=== PATIENT | female | born 1935 | race Hispanic/Latino ===

== ENCOUNTER → 2017-10-12 | Outpatient (CLI) | payer OTHER ==
[~2017-10-12] MED LIST: DIATRIZOATE MEGL/DIATRIZOA SOD 30 ML BTL PO ONE; IOPAMIDOL 370 MG/ML 200 ML INFUS..BTL INJ ONE; SODIUM CHLORIDE 0.9% 50ML 50 ML ONE
[2017-10-12 08:52] LABS: BLOOD UREA NITROGEN 15 mg/dL (7-26); BUN/CREATININE RATIO 18 (6-25); CREATININE, SERUM 0.83 mg/dL (0.57-1.11); EST GLOMERULAR FILTRATION RATE > 60 ML/MIN (60-)
--- NOTE | 2017-10-12 09:48 | Diagnostic Imaging Report ---
PROCEDURE:CT ABDOMEN AND PELVIS WITH CONTRAST COMPARISON:None. INDICATIONS:Abdominal pain TECHNIQUE: Routine protocol Volumetric CT abdomen and pelvis after administration of 100 mL Isovue-370 intravenous contrast and positive enteric contrast. Multiplanar reformatted images. DLP: 374.68 FINDINGS: Clear lung bases. No pleural effusions. Mild cardiomegaly without pericardial effusion. Left anterior descending coronary calcification. Liver: Diffuse decreased enhancement relative to the spleen. Otherwise, normal. Gallbladder: Cholecystectomy. No bile duct dilation. Pancreas: Atrophic; otherwise, normal Spleen: Normal Adrenal glands: Normal Kidneys: 2.3 cm left superior pole cyst; otherwise, normal bilaterally. Ureters and urinary bladder: Normal Uterus and adnexa: Hysterectomy Bowel: Normal caliber. Inconspicuous appendix. 0.9 cm enhancing polypoid nodule at the dependent aspect of the terminal ileum (image 56, series 2). Moderate stool volume. Peritoneum: Normal Vasculature: Normal caliber. Mild atherosclerosis of the infrarenal aorta and iliac arteries. Lymph nodes: Normal Skeleton: Intact. Multilevel degenerative disc disease. Soft tissues: Fat-containing inguinal hernias. Otherwise, normal. CONCLUSION: 1. Hepatic steatosis. 2. Nonobstructive 9 mm polypoid nodule at the terminal ileum. Recommend correlation with findings from screening colonoscopies. If not previously noted, consider followup with CT enterography in 6 to 12 months. 3. Otherwise, no conspicuous etiology for abdominal pain. Dictated by: Isauro Haas M.D. on 10/12/2017 at 9:49 Electronically approved by: Isauro Haas M.D. on 10/12/2017 at 9:49
== END ==
LOC: CT 07:42
PROVIDERS: ATTEND Family Medicine
DX: R10.9 Unspecified abdominal pain (principal)
CPT/HCPCS: 36415; 74177; 82565; 84520; Q9967

== ENCOUNTER → 2017-12-17 | Day surgery (SDC) | payer OTHER ==
[2017-12-14 11:22] LABS: BASOPHILS # (AUTO) 0.1 (0.0-0.1); BASOPHILS % 1.4 % (0.0-1.0); EOSINOPHILS # (AUTO) 0.2 (0.0-0.4); EOSINOPHILS % 3.8 % (0.0-6.0); HEMATOCRIT 37.8 % (34.2-44.1); HEMOGLOBIN 12.9 g/dL (12.0-16.0); LYMPHOCYTES # (AUTO) 1.7 (1.0-3.2); LYMPHOCYTES % 31.3 % (18.0-39.1); MEAN CORPUSCULAR HEMOGLOBIN 29.4 pg (28-32); MEAN CORPUSCULAR HGB CONC 34.1 g/dL (31-35); MEAN CORPUSCULAR VOLUME 86.1 fL (81-99); MONOCYTES # (AUTO) 0.6 (0.2-0.8); MONOCYTES % 10.3 % (4.4-11.3); NEUTROPHILS # (AUTO) 2.9 (2.1-6.9); NEUTROPHILS % 52.8 % (38.7-80.0); PLATELET COUNT 255 x10e3/uL (140-360); RED BLOOD COUNT 4.39 x10e6/uL (3.6-5.1); RED CELL DISTRIBUTION WIDTH 13.3 % (11.7-14.4)
[~2017-12-17] MED LIST changes: -DIATRIZOATE MEGL/DIATRIZOA SOD 30 ML BTL PO ONE; +GLIPIZIDE5 MG PO; +INSULIN REGULAR, HUMAN 100 UNIT/1 ML 3ML VIAL ONE; -IOPAMIDOL 370 MG/ML 200 ML INFUS..BTL INJ ONE; +IRON PO; +JANUVIA100 MG PO; +LIDOCAINE HCL 2% LOCAL INJ 5 ML SDV VIAL INJ ONE; +LOSARTAN-HCTZ1 EAC1 PO; +METFORMIN HCL500 M2 PO; +METOPROLOL TART50 MG PO; +PROPOFOL IV EMULSION 10 MG/ML 50 ML VIAL ONE; -SODIUM CHLORIDE 0.9% 50ML 50 ML ONE; +VESICARE5 MG PO
--- OUTSIDE RECORDS SUMMARY | 2017-12-17 06:32 | XMS REPORT ---
Author Author [facility] Address Unknown Phone Unavailable Care Team Providers Care Document Preparation Specialist Name Role Phone HEMA HERNADEZ Unavailable Unavailable Problems This patient has no known problems. Allergies, Adverse Reactions, Alerts This patient has no known allergies or adverse reactions. Medications This patient has no known medications. Results Test Description Test Time Test Comments Text Results Atomic Results Result Comments CT ABDOMEN/PELVIS W [place] [address] Patient Name: TINA ANDREWS MR #: [id number] : 1935 Age/Sex: 82/F Req #: [id number] Adm Physician: Ordered by: SATYA HALL, HEMA Sevilla MD Report #: [id number] Location: CT Room/Bed: ___ Procedure: [id number] CT/CT ABDOMEN/PELVIS W Exam Date: 10/12/17 Exam Time: 15 REPORT STATUS: Signed PROCEDURE: CT ABDOMEN AND PELVIS WITH CONTRAST COMPARISON: None. INDICATIONS: Abdominal pain TECHNIQUE: Routine protocol Volumetric CT abdomen and pelvis after administration of 100 mL Isovue-370 intravenous contrast and positive enteric contrast. Multiplanar reformatted images. DLP: 374.68 FINDINGS: Clear lung bases. No pleural effusions. Mild cardiomegaly without pericardial effusion. Left anterior descending coronary calcification. Liver: Diffuse decreased enhancement relative to the spleen. Otherwise, normal. Gallbladder: Cholecystectomy. No bile duct dilation. Pancreas: Atrophic; otherwise, normal Spleen: Normal Adrenal glands: Normal Kidneys: 2.3 cm left superior pole cyst; otherwise, normal bilaterally. Ureters and urinary bladder: Normal Uterus and adnexa: Hysterectomy Bowel: Normal caliber. Inconspicuous appendix. 0.9 cm enhancing polypoid nodule at the dependent aspect of the terminal ileum (image 56, series 2). Moderate stool volume. Peritoneum: Normal Vasculature: Normal caliber. Mild atherosclerosis of the infrarenal aorta and iliac arteries. Lymph nodes: Normal Skeleton: Intact. Multilevel degenerative disc disease. Soft tissues: Fat-containing inguinal hernias. Otherwise, normal. CONCLUSION: 1. Hepatic steatosis. 2. Nonobstructive 9 mm polypoid nodule at the terminal ileum. Recommend correlation with findings from screening colonoscopies. If not previously noted, consider followup with CT enterography in 6 to 12 months. 3. Otherwise, no conspicuous etiology for abdominal pain. Dictated by: Emeka Haas M.D. on 10/12/2017 at 9:49 Electronically approved by: Emkea Haas M.D. on 2017 at 9:49 Dictated By: EMEKA HAAS MD Transcribed By: KILEY on 948 COPY TO: HEMA HERNADEZ
== END | disposition home or self-care (01) ==
LOC: OR 06:30
PROVIDERS: ATTEND Internal Medicine Gastroenterology
DX: Z09 Encounter for follow-up examination after completed treatment for conditions other than malignant neoplasm (principal); D12.2 Benign neoplasm of ascending colon; K57.30 Diverticulosis of large intestine without perforation or abscess without bleeding; K64.8 Other hemorrhoids; D64.9 Anemia, unspecified; I10 Essential (primary) hypertension; E11.9 Type 2 diabetes mellitus without complications; E66.3 Overweight; Z01.810 Encounter for preprocedural cardiovascular examination; Z79.84 Long term (current) use of oral hypoglycemic drugs; Z68.27 Body mass index [BMI] 27.0-27.9, adult
CPT/HCPCS: 36415 ×2; 45385; 82948; 85025; 93005; J2001

== ENCOUNTER → 2020-11-13 | Outpatient (CLI) | payer MEDICARE, OTHER ==
[~2020-11-13] MED LIST changes: -INSULIN REGULAR, HUMAN 100 UNIT/1 ML 3ML VIAL ONE; +LEVAQUIN500 MG PO; -LIDOCAINE HCL 2% LOCAL INJ 5 ML SDV VIAL INJ ONE; -PROPOFOL IV EMULSION 10 MG/ML 50 ML VIAL ONE
== END ==
LOC: RAD 14:15
PROVIDERS: ATTEND Family Medicine
DX: R07.89 Other chest pain (principal)
CPT/HCPCS: 71101

== ENCOUNTER → 2020-11-28 | Outpatient (CLI) | payer MEDICARE, OTHER | LOC: DX 08:27 | PROVIDERS: ATTEND Family Medicine | DX: Z13.820 Encounter for screening for osteoporosis (principal); Z78.0 Asymptomatic menopausal state | CPT/HCPCS: 77080 ==

== ENCOUNTER 2021-04-03 09:10 | Emergency (ER) | payer MEDICARE, OTHER ==
[~2021-04-03] VITALS: Ht 152.4 cm; Wt 54.4 kg
[2021-04-03 10:06] LABS: BASOPHILS # (AUTO) 0.1 (0.0-0.1); BASOPHILS % 1.9 % (0.0-1.0); EOSINOPHILS # (AUTO) 0.1 (0.0-0.4); EOSINOPHILS % 2.1 % (0.0-6.0); HEMATOCRIT 27.6 % (34.2-44.1); HEMOGLOBIN 7.8 g/dL (12.0-16.0); LYMPHOCYTES # (AUTO) 0.9 (1.0-3.2); LYMPHOCYTES % 18.4 % (18.0-39.1); MEAN CORPUSCULAR HGB CONC 28.3 g/dL (31-35); MEAN CORPUSCULAR VOLUME 67.2 fL (81-99); MONOCYTES # (AUTO) 0.4 (0.2-0.8); MONOCYTES % 8.1 % (4.4-11.3); NEUTROPHILS # (AUTO) 3.3 (2.1-6.9); NEUTROPHILS % 68.7 % (38.7-80.0); PLATELET COUNT 447 x10e3/uL (140-360); RED BLOOD COUNT 4.11 x10e6/uL (3.6-5.1); RED CELL DISTRIBUTION WIDTH 18.9 % (11.7-14.4)
[2021-04-03 10:25] LABS: INR 0.92; PARTIAL THROMBOPLASTIN TIME 26.4 seconds (23.8-35.5); PROTHROMBIN TIME 12.6 seconds (11.9-14.5)
[2021-04-03 10:30] LABS: ALBUMIN 4.2 g/dL (3.5-5.0); ALBUMIN/GLOBULIN RATIO 1.1 (0.8-2.0); ANION GAP 14.1 mmol/L (8-16); CALCIUM 9.2 mg/dL (8.4-10.2); CREATININE, SERUM 0.8 mg/dL (0.57-1.11); POTASSIUM 4.1 mmol/L (3.5-5.1)
[2021-04-03] MEDS ORDERED: SODIUM CHLORIDE 0.9% 250ML 250 ML IV ONE (10:45)
[2021-04-03] MEDS ORDERED: SODIUM CHLORIDE 0.9% 250ML 250 ML ONE (15:16)
== END 2021-04-03 20:04 | disposition home or self-care (01) ==
LOC: ER 09:43
DX: D64.9 Anemia, unspecified (principal); E11.65 Type 2 diabetes mellitus with hyperglycemia; I10 Essential (primary) hypertension; N32.81 Overactive bladder; Z96.653 Presence of artificial knee joint, bilateral
CPT/HCPCS: 36415; 80053; 85025; 85610; 85730; 86850; 86900; 86920; 99283; J7050; P9016

== ENCOUNTER → 2021-08-15 | Day surgery (SDC) | payer MEDICARE, OTHER ==
[2021-08-13 08:29] LABS: BASOPHILS # (AUTO) 0.1 (0.0-0.1); EOSINOPHILS # (AUTO) 0.3 (0.0-0.4); EOSINOPHILS % 4.8 % (0.0-6.0); HEMATOCRIT 35.2 % (34.2-44.1); HEMOGLOBIN 10.9 g/dL (12.0-16.0); LYMPHOCYTES # (AUTO) 1.5 (1.0-3.2); LYMPHOCYTES % 27.3 % (18.0-39.1); MEAN CORPUSCULAR HEMOGLOBIN 25.3 pg (28-32); MEAN CORPUSCULAR VOLUME 81.9 fL (81-99); MONOCYTES # (AUTO) 0.6 (0.2-0.8); MONOCYTES % 10.8 % (4.4-11.3); NEUTROPHILS % 54.9 % (38.7-80.0); PLATELET COUNT 312 x10e3/uL (140-360); RED CELL DISTRIBUTION WIDTH 16.8 % (11.7-14.4)
[~2021-08-15] MED LIST changes: +BENICAR40 MG PO; +CRESTOR10 MG PO; +FENTANYL CITRATE/PF 100MCG/2 ML INJ ONE; +FERROUS SULFAT325 MG PO; +GLIPIZIDE ER5 MG PO; +HYDRALAZINE HC100 MG PO; +HYDROCHLOROTHIA25 MG PO; +LANTUS 3ML100 UNITS/ INJ; +LEVOTHYROXINE50 MCG PO; +LIDOCAINE HCL 2% LOCAL INJ 5 ML SDV VIAL INJ ONE; +OXYBUTYNIN CHLOR5 M1 PO; +PROPOFOL IV EMULSION 10 MG/ML 20 ML VIAL ONE; +VITAMIN D2 PO
[2021-08-15 09:17] VITALS: BP 116/56
== END | disposition home or self-care (01) ==
LOC: OR 07:03
PROVIDERS: ATTEND Internal Medicine Gastroenterology
DX: D50.0 Iron deficiency anemia secondary to blood loss (chronic) (principal); K63.5 Polyp of colon; K29.40 Chronic atrophic gastritis without bleeding; K31.A0 Gastric intestinal metaplasia, unspecified; K55.20 Angiodysplasia of colon without hemorrhage; K44.9 Diaphragmatic hernia without obstruction or gangrene; K64.8 Other hemorrhoids; E66.3 Overweight; Z71.3 Dietary counseling and surveillance; E11.9 Type 2 diabetes mellitus without complications; I49.1 Atrial premature depolarization; I10 Essential (primary) hypertension; E78.5 Hyperlipidemia, unspecified; E03.9 Hypothyroidism, unspecified; M19.90 Unspecified osteoarthritis, unspecified site; Z01.810 Encounter for preprocedural cardiovascular examination; Z01.812 Encounter for preprocedural laboratory examination; Z20.822 Contact with and (suspected) exposure to COVID-19; Z79.4 Long term (current) use of insulin; Z79.899 Other long term (current) drug therapy; Z68.25 Body mass index [BMI] 25.0-25.9, adult
CPT/HCPCS: 36415 ×2; 43239; 45385; 82948; 85025; 93005; J2001; J2704; J3010; U0002; 45378

== ENCOUNTER 2025-01-04 17:35 | Inpatient (IN) | payer MEDICARE, OTHER ==
[~2025-01-04] VITALS: Ht 152.4 cm; Wt 54.4 kg
[~2025-01-04 17:35] MED LIST changes: -FENTANYL CITRATE/PF 100MCG/2 ML INJ ONE; -LIDOCAINE HCL 2% LOCAL INJ 5 ML SDV VIAL INJ ONE; +MUCINEX DM ER1 EACH PO; -PROPOFOL IV EMULSION 10 MG/ML 20 ML VIAL ONE
[2025-01-04 17:55] VITALS: TEMP 98.7
[2025-01-04 18:16] LABS: BASOPHILS # (AUTO) 0.1 (0.0-0.1); BASOPHILS % 1.2 % (0.0-1.0); EOSINOPHILS # (AUTO) 0.1 (0.0-0.4); EOSINOPHILS % 2.1 % (0.0-6.0); HEMATOCRIT 34.7 % (34.2-44.1); HEMOGLOBIN 11.1 g/dL (12.0-16.0); LYMPHOCYTES # (AUTO) 1.4 (1.0-3.2); LYMPHOCYTES % 25.5 % (18.0-39.1); MEAN CORPUSCULAR HEMOGLOBIN 27.9 pg (28-32); MEAN CORPUSCULAR VOLUME 87.2 fL (81-99); MONOCYTES # (AUTO) 0.6 (0.2-0.8); MONOCYTES % 10.1 % (4.4-11.3); NEUTROPHILS # (AUTO) 3.4 (2.1-6.9); NEUTROPHILS % 60.6 % (38.7-80.0); PLATELET COUNT 230 x10e3/uL (140-360); RED BLOOD COUNT 3.98 x10e6/uL (3.6-5.1); WHITE BLOOD COUNT 5.65 x10e3/uL (4.8-10.8)
[2025-01-04] MEDS: CALCIUM GLUC 1 G/50 ML NACL 50 ML IV ONE ×2 (18:31→23:43)
[2025-01-04 18:37] LABS: ALBUMIN 3.9 g/dL (3.5-5.0); ALBUMIN/GLOBULIN RATIO 1.3 (0.8-2.0); ANION GAP 16.3 mmol/L (8-16); BILIRUBIN,TOTAL 0.8 mg/dL (0.2-1.2); CALCIUM 9.2 mg/dL (8.4-10.2); CREATININE, SERUM 0.83 mg/dL (0.57-1.11); POTASSIUM 4.3 mmol/L (3.5-5.1); TOTAL PROTEIN 6.9 g/dL (6.5-8.1)
[2025-01-04 18:42] LABS: TROPONIN I 0.006 ng/mL (0-0.300)
[2025-01-04] MEDS: ASPIRIN 81 MG CHEW TAB PO ONE (19:13)
[2025-01-04] MEDS: GLUCAGON FOR INJ 1 MG VIAL IV ONE ×2 (19:13→23:43)
[2025-01-04] MEDS ORDERED: ONDANSETRON HCL INJ 2MG/ML 2ML 2 MG/ML VIAL IV PRN (19:45)
[2025-01-04 22:03] VITALS: PULSE 49; RESP 18
[2025-01-04 22:38] VITALS: PULSE 46; RESP 20; O2SAT 98
[2025-01-04 22:55] VITALS: BP 177/54; PULSE 42; RESP 20; TEMP 98.4; O2SAT 96
[2025-01-04 23:00] VITALS: BP 177/55; PULSE 42; RESP 20; O2SAT 97
[2025-01-04 23:36] VITALS: BP 162/55; PULSE 40; RESP 18; O2SAT 96
[2025-01-04] MEDS ORDERED: LEVOTHYROXINE75 MCG PO (23:39)
[2025-01-04] MEDS ORDERED: METOPROLOL SUCC25 MG PO (23:39)
[2025-01-04] MEDS ORDERED: CLOPIDOGREL75 MG PO (23:39)
[2025-01-04] MEDS ORDERED: MAG-OXIDE400 MG PO (23:39)
[2025-01-04] MEDS ORDERED: METFORMIN HCL500 M1 PO (23:39)
[2025-01-04] MEDS ORDERED: ASPIRIN81 MG PO (23:39)
[2025-01-04] MEDS ORDERED: GLIPIZIDE ER10 MG PO (23:39)
[2025-01-04] MEDS ORDERED: JARDIANCE25 MG PO (23:39)
[2025-01-04] MEDS ORDERED: PIOGLITAZONE HC45 MG PO (23:39)
[2025-01-04] MEDS ORDERED: NITROGLYCERIN0.4 MG SL (23:39)
[2025-01-04] MEDS ORDERED: SPIRONOLACTONE25 MG PO (23:39)
[2025-01-04] MEDS ORDERED: TRAZODONE HCL50 MG PO (23:39)
[2025-01-04] MEDS ORDERED: SERTRALINE HCL25 MG PO (23:39)
[2025-01-05] VITALS (25 sets, daily range): BP systolic 164–195; BP diastolic 52–69; PULSE 38–56; RESP 14–21; TEMP 97.6–98.1; O2SAT 95–99
[2025-01-05 06:49] LABS: BASOPHILS # (AUTO) 0.1 (0.0-0.1); BASOPHILS % 1.1 % (0.0-1.0); EOSINOPHILS # (AUTO) 0.2 (0.0-0.4); EOSINOPHILS % 3.7 % (0.0-6.0); HEMATOCRIT 36.6 % (34.2-44.1); HEMOGLOBIN 11.8 g/dL (12.0-16.0); LYMPHOCYTES # (AUTO) 1.3 (1.0-3.2); LYMPHOCYTES % 23.3 % (18.0-39.1); MEAN CORPUSCULAR HEMOGLOBIN 28.3 pg (28-32); MEAN CORPUSCULAR HGB CONC 32.2 g/dL (31-35); MEAN CORPUSCULAR VOLUME 87.8 fL (81-99); MONOCYTES # (AUTO) 0.6 (0.2-0.8); MONOCYTES % 9.7 % (4.4-11.3); NEUTROPHILS # (AUTO) 3.5 (2.1-6.9); NEUTROPHILS % 61.7 % (38.7-80.0); PLATELET COUNT 217 x10e3/uL (140-360); RED BLOOD COUNT 4.17 x10e6/uL (3.6-5.1); RED CELL DISTRIBUTION WIDTH 14.9 % (11.7-14.4); WHITE BLOOD COUNT 5.67 x10e3/uL (4.8-10.8)
[2025-01-05 06:56] LABS: ALBUMIN 3.6 g/dL (3.5-5.0); ALBUMIN/GLOBULIN RATIO 1.2 (0.8-2.0); ANION GAP 15.6 mmol/L (8-16); CALCIUM 9.2 mg/dL (8.4-10.2); CREATININE, SERUM 0.67 mg/dL (0.57-1.11); POTASSIUM 3.6 mmol/L (3.5-5.1); TOTAL PROTEIN 6.6 g/dL (6.5-8.1)
[2025-01-05 07:18] LABS: TROPONIN I 0.012 ng/mL (0-0.300)
[2025-01-05] MEDS ORDERED: BENICAR20 MG PO (13:26)
[2025-01-05] MEDS: OLMESARTAN 20 MG TAB PO SCH (13:54)
[2025-01-05 16:07] LABS: TROPONIN I 0.005 ng/mL (0-0.300)
[2025-01-05] MEDS: MAGNESIUM OXIDE 400 MG TAB PO SCH (16:17)
[2025-01-05] MEDS: METFORMIN HCL 500 MG TAB CR PO SCH (16:17)
[2025-01-05] MEDS: GLIPIZIDE 5 MG TAB ER PO SCH (16:18)
[2025-01-05] MEDS: TRAZODONE HCL 50 MG TAB PO SCH (20:23)
[2025-01-06] VITALS (21 sets, daily range): BP systolic 97–184; BP diastolic 50–84; PULSE 44–74; RESP 13–32; TEMP 97.8–97.9; O2SAT 93–98
[2025-01-06 06:32] LABS: BASOPHILS # (AUTO) 0.1 (0.0-0.1); BASOPHILS % 1.5 % (0.0-1.0); EOSINOPHILS # (AUTO) 0.2 (0.0-0.4); EOSINOPHILS % 5.9 % (0.0-6.0); HEMATOCRIT 38.2 % (34.2-44.1); HEMOGLOBIN 12.3 g/dL (12.0-16.0); LYMPHOCYTES % 24.9 % (18.0-39.1); MEAN CORPUSCULAR HEMOGLOBIN 28.1 pg (28-32); MEAN CORPUSCULAR HGB CONC 32.2 g/dL (31-35); MEAN CORPUSCULAR VOLUME 87.2 fL (81-99); MONOCYTES # (AUTO) 0.6 (0.2-0.8); MONOCYTES % 13.7 % (4.4-11.3); NEUTROPHILS # (AUTO) 2.2 (2.1-6.9); NEUTROPHILS % 53.8 % (38.7-80.0); PLATELET COUNT 229 x10e3/uL (140-360); RED BLOOD COUNT 4.38 x10e6/uL (3.6-5.1); RED CELL DISTRIBUTION WIDTH 15.1 % (11.7-14.4)
[2025-01-06 07:05] LABS: ANION GAP 14.9 mmol/L (8-16); CALCIUM 8.8 mg/dL (8.4-10.2); CREATININE, SERUM 0.74 mg/dL (0.57-1.11); POTASSIUM 3.9 mmol/L (3.5-5.1)
[2025-01-06] MEDS: SERTRALINE HCL 50 MG TAB PO SCH (08:25)
[2025-01-06] MEDS: CLOPIDOGREL BISULFATE 75 MG TAB PO SCH (08:25)
[2025-01-06] MEDS: PIOGLITAZONE HCL 45 MG TAB PO SCH (08:26)
[2025-01-06] MEDS: SPIRONOLACTONE 25 MG TAB PO SCH (08:26)
[2025-01-06] MEDS: ASPIRIN 81 MG CHEW TAB PO SCH (08:26)
[2025-01-06] MEDS: LEVOTHYROXINE SODIUM 75 MCG TAB PO SCH (08:26)
[2025-01-06] MEDS: AMLODIPINE BESYLATE 10 MG TAB PO SCH (12:40)
[2025-01-06] MEDS: Morphine 2mg Syringe 2 MG/ML SYR IV PRN (23:11)
[2025-01-07] VITALS (14 sets, daily range): BP systolic 115–165; BP diastolic 54–82; PULSE 48–70; RESP 14–22; TEMP 98–98.3; O2SAT 91–99
[2025-01-07] MEDS: LEVOTHYROXINE SODIUM 88 MCG TAB PO SCH (06:23)
[2025-01-07] MEDS: PANTOPRAZOLE SOD 40 MG TABEC PO SCH (08:42)
[2025-01-07] MEDS ORDERED: NORVASC10 MG PO (11:36)
[2025-01-07] MEDS ORDERED: LEVOTHYROXINE88 MCG PO (11:36)
[2025-01-07] MEDS ORDERED: SIMVASTATIN10 MG PO (11:40)
== END 2025-01-07 13:55 | disposition home or self-care (01) | DRG 313 ==
LOC: ER 18:05 → ERHOLD 19:40 → OBSVTOIN 20:35 → ICU 22:52
PROVIDERS: ADMIT Internal Medicine; ATTEND Internal Medicine
DX: R07.89 Other chest pain (principal); I25.10 Atherosclerotic heart disease of native coronary artery without angina pectoris; R00.1 Bradycardia, unspecified; I10 Essential (primary) hypertension; E11.9 Type 2 diabetes mellitus without complications; E03.9 Hypothyroidism, unspecified; E78.5 Hyperlipidemia, unspecified; R53.81 Other malaise; Z79.4 Long term (current) use of insulin; Z79.02 Long term (current) use of antithrombotics/antiplatelets; Z79.84 Long term (current) use of oral hypoglycemic drugs; Z79.82 Long term (current) use of aspirin; Z79.890 Hormone replacement therapy; Z95.5 Presence of coronary angioplasty implant and graft
CPT/HCPCS: 36415; 71045; 80048; 80053; 82550; 83036; 83690; 83880; 84443; 84484; 85025; 93005; 93306; 94799; 99252; 99284; J1610; J2270; J2470